=== PATIENT | female | born 1965 | race Caucasian/White ===

== ENCOUNTER 2017-10-04 16:17 | Emergency (ER) | payer MEDICARE ==
[~2017-10-04] VITALS: Ht 170.2 cm; Wt 97.7 kg
[~2017-10-04 16:17] MED LIST: ARIP20 PO; ASPI81TA82 PO; B-COTAB41 PO; CHOL1CAP PO; EFFE150C PO; HYDR200T42 PO; METH2.5 PO; METH4TAB6 PO; METO25TA6 PO; PRED20 PO; PROT40TA PO; VENL75 PO; XANA0.5T PO
[2017-10-04 16:30] VITALS: BP 186/98; PULSE 78; RESP 20; TEMP 97.7; O2SAT 99
--- NOTE | 2017-10-04 16:35 | PD ---
HPI Chief Complaint: cp Time Seen by Provider: 16:32 Travel History International Travel<30 days: No Contact w/Intl Traveler<30days: No Traveled to known affect area: No History of Present Illness HPI Patient states that she started having a headache yesterday around 5 AM associated with nausea and vomiting, the headache she described as generalized pressure 8 out of 10. The following morning she woke up and started having diarrhea, which was so severe that she was going several times a day. Then at around noon patient developed chest pressure after several bouts of nausea and vomiting. Patient started to take some Tums but it did not relieve her chest pressure/burning sensation that she developed Primary care physician is Dr. 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 PFSH Past Medical History Hx Anticoagulant Therapy: Yes (81 MG ASA) Arthritis: Yes (RA) Asthma: Yes Autoimmune Disease: Yes (LUPUS AND RA) Blood Disorders: No Anxiety: Yes Depression: Yes Heart Rhythm Problems: No Cancer: Yes (SKIN CA) Cardiovascular Problems: Yes High Cholesterol: Yes Chemotherapy: No Chest Pain: Yes Congestive Heart Failure: No COPD: No Cerebrovascular Accident: Yes Diabetes: No Diminished Hearing: No Endocrine: No Gastrointestinal Disorders: Yes GERD: No Glaucoma: No Genitourinary: No Headaches: Yes Hepatitis: No Hiatal Hernia: No Hypertension: Yes Immune Disorder: Yes (LUPUS, RA) Implanted Vascular Access Dvce: No Kidney Stones: No Musculoskeletal: No Neurologic: No Psychiatric: Yes Reproductive: Yes (endometriosis) Respiratory: Yes (ASTHMA) Migraines: Yes Myocardial Infarction: No Radiation Therapy: No Renal Failure: No Seizures: No Sickle Cell Disease: No Sleep Apnea: No Thyroid Disease: No Ulcer: No Menopausal: Yes : 2 Para: 2 Past Surgical History Abdominal Surgery: Yes (laporascopic endometriosis surgery, then total hysterectomy) AICD: No Appendectomy: No Arteriovenous Shunt: No Cardiac Surgery: No Cholecystectomy: No Ear Surgery: No Endocrine Surgery: No Eye Surgery: No Genitourinary Surgery: No Gynecologic Surgery: Yes (Total hysterectomy) Hysterectomy: Yes Insulin Pump: No Joint Replacement: No Neurologic Surgery: No Oral Surgery: No Pacemaker: No Thoracic Surgery: No Tonsillectomy: Yes Other Surgery: Yes Social History Alcohol Use: No Tobacco Use: No (quit 3 years ago, twenty pack year hx) Substance Use: No Allergies-Medications (Allergen,Severity, Reaction): Coded Allergies: erythromycin base (Unverified Allergy, Severe, WHEEZING, 10/04/17) egg (Unverified Adverse Reaction, Intermediate, HEART BURN, 10/04/17) Reported Meds & Prescriptions Reported Meds & Active Scripts Active Reported Prednisone 5 Mg Tab 5 Mg PO DAILY Leflunomide 20 Mg Tab 20 Mg PO DAILY Aspirin 81 Mg Chew 81 Mg CHEW DAILY Latuda (Lurasidone) 60 Mg Tab 60 Mg PO DAILY Trintellix (Vortioxetine) 20 Mg Tab 20 Mg PO DAILY Promethazine (Promethazine HCl) 12.5 Mg Tab 25 Mg PO Q4H PRN Methotrexate 2.5 Mg Tab 20 Mg PO Q7D Folic Acid 0.4 Mg Tab 2,000 Mcg PO DAILY Fioricet (Rgdukrsvcw-Pexmesrlbrdmj-Iyegextu) 50-300-40 Mg Cap 1-2 Cap PO Q6H PRN [place] (Hydrocodone-Acetaminophen) 5 Mg-325 Mg Tab 1 Tab PO Q6H PRN Clonazepam 1 Mg Tab 1 Mg PO TID Gabapentin 100 Mg Cap 100 Mg PO TID Review of Systems General / Constitutional: No: Fever Eyes: No: Visual changes HENT: No: Headaches Cardiovascular: Positive: Chest Pain or Discomfort Respiratory: No: Shortness of Breath Gastrointestinal: No: Abdominal Pain Genitourinary: No: Dysuria Musculoskeletal: No: Pain Skin: No Rash Neurologic: No: Weakness Psychiatric: No: Depression Endocrine: No: Polydipsia Hematologic/Lymphatic: No: Easy Bruising Physical Exam Narrative GENERAL: SKIN: Warm and dry. HEAD: Atraumatic. Normocephalic. EYES: Pupils equal and round. No scleral icterus. No injection or drainage. ENT: No nasal bleeding or discharge. Mucous membranes pink and moist. NECK: Trachea midline. No JVD. CARDIOVASCULAR: Regular rate and rhythm. RESPIRATORY: No accessory muscle use. Clear to auscultation. Breath sounds equal bilaterally. GASTROINTESTINAL: Abdomen soft, non-tender, nondistended. MUSCULOSKELETAL: Extremities without clubbing, cyanosis, or edema. No obvious deformities. NEUROLOGICAL: Awake and alert. No obvious cranial nerve deficits. Motor grossly within normal limits. Five out of 5 muscle strength in the arms and legs. Normal speech. PSYCHIATRIC: Appropriate mood and affect; insight and judgment normal. Data Data Last Documented VS Vital Signs Date Time Temp Pulse Resp B/P (MAP) Pulse Ox O2 Delivery O2 Flow Rate FiO2 10/04/17 17:57 79 18 176/84 (114) 96 Room Air 164/84 (110) 10/04/17 16:30 97.7 Orders Orders Electrocardiogram (10/04/17 16:35) B-Type Natriuretic Peptide (10/04/17 16:35) Ckmb (Isoenzyme) Profile (10/04/17 16:35) Complete Blood Count With Diff (10/04/17 16:35) Comprehensive Metabolic Panel (10/04/17 16:35) D-Dimer (10/04/17 16:35) Prothrombin Time / Inr (Pt) (10/04/17 16:35) Act Partial Throm Time (Ptt) (10/04/17 16:35) Troponin I (10/04/17 16:35) Lipase (10/04/17 16:35) Chest, Single Ap (10/04/17 16:35) Ecg Monitoring (10/04/17 16:35) Bilateral Bp Monitoring (10/04/17 16:35) Iv Access Insert/Monitor (10/04/17 16:35) Oximetry (10/04/17 16:35) Oxygen Administration (10/04/17 16:35) Sodium Chloride 0.9% Flush (Ns Flush) (10/04/17 16:45) Ct Brain W/O Iv Contrast(Rout) (10/04/17 16:41) Influenzae A/B Antigen (10/04/17 16:41) Morphine Inj (Morphine Inj) (10/04/17 17:00) Ondansetron Inj (Zofran Inj) (10/04/17 17:00) Labs Laboratory Tests Test 10/04/17 16:54 White Blood Count 9.7 TH/MM3 Red Blood Count 4.60 MIL/MM3 Hemoglobin 14.0 GM/DL Hematocrit 42.2 % Mean Corpuscular Volume 91.8 FL Mean Corpuscular Hemoglobin 30.5 PG Mean Corpuscular Hemoglobin Concent 33.2 % Red Cell Distribution Width 14.2 % Platelet Count 305 TH/MM3 Mean Platelet Volume 7.4 FL Neutrophils (%) (Auto) 58.9 % Lymphocytes (%) (Auto) 34.1 % Monocytes (%) (Auto) 2.4 % Eosinophils (%) (Auto) 3.0 % Basophils (%) (Auto) 1.6 % Neutrophils # (Auto) 5.7 TH/MM3 Lymphocytes # (Auto) 3.3 TH/MM3 Monocytes # (Auto) 0.2 TH/MM3 Eosinophils # (Auto) 0.3 TH/MM3 Basophils # (Auto) 0.2 TH/MM3 CBC Comment DIFF FINAL Differential Comment Prothrombin Time 10.2 SEC Prothromb Time International Ratio 1.0 RATIO Activated Partial Thromboplast Time 24.3 SEC D-Dimer Quantitative (PE/DVT) 0.19 MG/L FEU Blood Urea Nitrogen 7 MG/DL Creatinine 0.68 MG/DL Random Glucose 82 MG/DL Total Protein 7.2 GM/DL Albumin 3.4 GM/DL Calcium Level 8.4 MG/DL Alkaline Phosphatase 99 U/L Aspartate Amino Transf (AST/SGOT) 45 U/L Alanine Aminotransferase (ALT/SGPT) 59 U/L Total Bilirubin 0.2 MG/DL Sodium Level 139 MEQ/L Potassium Level 3.5 MEQ/L Chloride Level 104 MEQ/L Carbon Dioxide Level 27.6 MEQ/L Anion Gap 7 MEQ/L Estimat Glomerular Filtration Rate 91 ML/MIN Total Creatine Kinase 76 U/L Troponin I LESS THAN 0.02 NG/ML B-Type Natriuretic Peptide 9 PG/ML Lipase 191 U/L MDM Medical Decision Making Medical Screen Exam Complete: Yes Emergency Medical Condition: Yes Medical Record Reviewed: Yes Interpretation(s) EKG shows normal sinus rhythm, 84 bpm, some occasional PACs. Slight motion artifact. Nonspecific ST-T wave changes noted. No STEMI pattern noted. Differential Diagnosis STEMI versus non-STEMI versus pneumonia versus pneumothorax versus pulmonary embolus versus arrhythmia Narrative Course CBC is negative for any leukocytosis, anemia, any left shift, and normal platelet count. Coagulation profile is within normal limits D-dimer test is negative Complete metabolic profile shows normal electrolytes, normal kidney functions. Normal lipase. Negative troponin. As well as a normal beta natruretic peptide. Patient's total bilirubin and creatinine kinase as well as alkaline phosphatase are all within normal limits with exception of some mild elevation of the AST at 45 and ALT of 59 which are not believed to be of any significance for the patient's symptoms today. Flu test is negative Head CT is read as normal examination by radiologist Chest x-ray read as no acute disease by radiologist. Diagnosis Primary Impression: Gastroenteritis Additional Impression: Secondary headache and chest pain Scripts Diphenoxylate-Atropine (Lomotil) 2.5-0.025 Mg Tab 1 TAB PO Q6H Y for DIARRHEA, #10 TAB 0 Refills Prov: Klever Florence MD 10/04/17 Ondansetron Odt (Zofran Odt) 8 Mg Tab 8 MG SL Q8H Y for NAUSEA OR VOMITING, #15 TAB 0 Refills Prov: Klever Florence MD 10/04/17 Disposition: 01 DISCHARGE HOME Condition: Stable Klever Florence MD Oct 04, 2017 16:35
[2017-10-04] MEDS ORDERED: SODIUM CHLORIDE 0.9% FLUSH 10 ML FLUSH IVF PRN (16:45)
[2017-10-04] MEDS ORDERED: ONDANSETRON HCL 4 MG/2 ML VIAL IV PUSH ONE (17:00)
[2017-10-04] MEDS ORDERED: MORPHINE SULFATE 4 MG/ML INJ IV PUSH ONE (17:00)
--- NOTE | 2017-10-04 17:19 | RADRPT ---
EXAM DATE/TIME: 10/04/2017 16:54 [facility] COMPARISON: CHEST SINGLE AP, September 02, 2015, 13:42. INDICATIONS : Chest pain, short of breath MEDICAL HISTORY : None. SURGICAL HISTORY : None. ENCOUNTER: Initial ACUITY: 1 day PAIN SCORE: 8/10 LOCATION: Bilateral cranial FINDINGS: A single view of the chest demonstrates the lungs to be symmetrically aerated without evidence of mas s, infiltrate or effusion. The cardiomediastinal contours are unremarkable. Osseous structures are intact. CONCLUSION: No acute disease. Aleksey Farah MD on October 04, 2017 at 17:17 Board Certified Radiologist. This report was verified electronically.
[2017-10-04 17:22] LABS: AUTOMATED NEUTROPHIL # 5.7 TH/MM3 (1.8-7.7); BASOPHIL # 0.2 TH/MM3 (0-0.2); BASOPHIL % 1.6 % (0.0-2.0); EOSINOPHIL # 0.3 TH/MM3 (0-0.4); HEMATOCRIT 42.2 % (35.0-46.0); LYMPH % 34.1 % (9.0-44.0); LYMPHOCYTE # 3.3 TH/MM3 (1.0-4.8); MEAN CELL VOLUME 91.8 FL (80.0-100.0); MEAN CORPUSCULAR HEMOGLOBIN 30.5 PG (27.0-34.0); MEAN CORPUSCULAR HGB CONC 33.2 % (32.0-36.0); MEAN PLATELET VOLUME 7.4 FL (7.0-11.0); MONO % 2.4 % (0.0-8.0); MONOCYTE # 0.2 TH/MM3 (0-0.9); NEUT % 58.9 % (16.0-70.0); PLATELET COUNT 305 TH/MM3 (150-450); RED CELL DISTRIBUTION WIDTH 14.2 % (11.6-17.2); WHITE BLOOD COUNT 9.7 TH/MM3 (4.0-11.0)
[2017-10-04 17:30] LABS: CHLORIDE 104 MEQ/L (98-107); SODIUM (NA) 139 MEQ/L (136-145)
--- NOTE | 2017-10-04 17:32 | RADRPT ---
EXAM DATE/TIME: 10/04/2017 17:24 [facility] COMPARISON: CT BRAIN W/O CONTRAST, September 02, 2015, 14:57. INDICATIONS : Headache and vomiting. RADIATION DOSE: 63.54 CTDIvol (mGy) MEDICAL HISTORY : Hypertension. Anticoagulant therapy. SURGICAL HISTORY : Hysterectomy. ENCOUNTER: Initial ACUITY: 1 day PAIN SCALE: 4/10 LOCATION: cranial TECHNIQUE: Multiple contiguous axial images were obtained of the head. Using automated exposure control and adj ustment of the mA and/or kV according to patient size, radiation dose was kept as low as reasonably a chievable to obtain optimal diagnostic quality images. DICOM format image data is available electro nically for review and comparison. FINDINGS: CEREBRUM: The ventricles are normal for age. No evidence of midline shift, mass lesion, hemorrhage or acute in farction. No extra-axial fluid collections are seen. POSTERIOR FOSSA: The cerebellum and brainstem are intact. The 4th ventricle is midline. The cerebellopontine angle i s unremarkable. EXTRACRANIAL: The visualized portion of the orbits is intact. SKULL: The calvaria is intact. No evidence of skull fracture. CONCLUSION: Normal examination. Aleksey Farah MD on October 04, 2017 at 17:30 Board Certified Radiologist. This report was verified electronically.
[2017-10-04 17:34] LABS: ALBUMIN 3.4 GM/DL (3.4-5.0); BICARBONATE 27.6 MEQ/L (21.0-32.0); CALCIUM 8.4 MG/DL (8.5-10.1); GLUCOSE,RANDOM 82 MG/DL (74-106)
[2017-10-04 17:35] LABS: BLOOD UREA NITROGEN 7 MG/DL (7-18)
[2017-10-04 17:37] LABS: ALT (GPT) 59 U/L (10-53); AST (GOT) 45 U/L (15-37); CREATININE 0.68 MG/DL (0.50-1.00); GLOMERULAR FILTRATION RATE 91 ML/MIN (>89)
[2017-10-04 17:39] LABS: TOTAL BILIRUBIN ADULT 0.2 MG/DL (0.2-1.0); TOTAL PROTEIN 7.2 GM/DL (6.4-8.2)
[2017-10-04 17:40] LABS: ALKALINE PHOSPHATASE 99 U/L (45-117); PROTHROMBIN TIME - PATIENT 10.2 SEC (9.8-11.6)
[2017-10-04 17:43] LABS: TROPONIN I LESS THAN 0.02 NG/ML (0.02-0.05)
[2017-10-04] MEDS ORDERED: PROM12.54 PO (17:43)
[2017-10-04] MEDS ORDERED: NORC5TAB PO (17:43)
[2017-10-04] MEDS ORDERED: BUTA1CAP PO (17:43)
[2017-10-04] MEDS ORDERED: METH2.5T PO (17:43)
[2017-10-04] MEDS ORDERED: VORT1TAB3 PO (17:43)
[2017-10-04] MEDS ORDERED: CLON1TAB PO (17:43)
[2017-10-04] MEDS ORDERED: FOLI400T PO (17:43)
[2017-10-04] MEDS ORDERED: GABA100C4 PO (17:43)
[2017-10-04] MEDS ORDERED: LURA1TAB2 PO (17:49)
[2017-10-04] MEDS ORDERED: PRED5TAB PO (17:49)
[2017-10-04] MEDS ORDERED: LEFL1TAB3 PO (17:49)
[2017-10-04] MEDS ORDERED: ASPI-516 CHEW (17:49)
[2017-10-04 17:54] LABS: D-DIMER 0.19 MG/L FEU (0.00-0.50)
[2017-10-04 17:57] VITALS: BP_SYST 164; BP_SYST 176; BP_DIAS 84; PULSE 79; RESP 18; O2SAT 96
[2017-10-04] MEDS ORDERED: ZOFR8TAB4 SL (18:27)
[2017-10-04] MEDS ORDERED: LOMO2.5T PO (18:27)
[2017-10-04 19:10] VITALS: BP 169/88
--- NOTE | 2017-10-05 13:27 | EKG ---
Date Performed: 10/04/2017 Time Performed: 16:24:35 PTAGE: 52 years EKG: Sinus rhythm WITH OCCASIONAL SUPRAVENTRICULAR PREMATURE COMPLEXES MODERATE ST DEPRESSION ABNORMAL ECG PREVIOUS TRACING : 12/06/2015 17.55 Since the prior tracing, there has been no significant [place] DOCTOR: Balwinder Argueta Interpretating Date/Time 10/05/2017 13:25:52
== END 2017-10-04 19:19 | disposition home or self-care (01) ==
LOC: PHED 16:17
DX: K52.9 Noninfective gastroenteritis and colitis, unspecified (principal); R51 Headache; R07.9 Chest pain, unspecified; R94.31 Abnormal electrocardiogram [ECG] [EKG]; M06.9 Rheumatoid arthritis, unspecified; J45.909 Unspecified asthma, uncomplicated; M32.9 Systemic lupus erythematosus, unspecified; F32.9 Major depressive disorder, single episode, unspecified; E78.00 Pure hypercholesterolemia, unspecified; Z79.82 Long term (current) use of aspirin; Z87.891 Personal history of nicotine dependence
CPT/HCPCS: 70450; 71045; 80053; 82550; 83690; 83880; 84484; 85025; 85379; 85610; 85730; 87804; 93005; 96374; 96375; 99285; J2270; J2405